=== PATIENT | male | born 1980 | race African-American/Black ===

== ENCOUNTER 2017-05-19 21:24 | Emergency (ER) | payer SELFPAY ==
[~2017-05-19] VITALS: Ht 180.3 cm; Wt 117.9 kg
[2017-05-19 21:44] VITALS: BP 164/106
[2017-05-19 22:14] LABS: BILIRUBIN,URINE NEGATIVE (NEG); GLUCOSE,URINE NEGATIVE (NEG); NITRITE,URINE NEGATIVE (NEG); PROTEIN,URINE 30 mg/dL (NEG-TRACE); UROBILINOGEN,URINE 0.2 mg/dL (0.2 mg/dL)
[2017-05-19 22:16] LABS: BACTERIA,URINE 0 /HPF (0-FEW); RBC,URINE OCC /HPF (0-2); SQUAMOUS EPITHELIAL CELL,UR OCC /LPF; WBC,URINE OCC /HPF (0-4)
[2017-05-19 22:19] LABS: BARBITURATES NEG (NEG); BENZODIAZEPINES NEG (NEG); CANNABINOIDS POS (NEG); COCAINE NEG (NEG); METHADONE NEG (NEG); OPIATES NEG (NEG); PHENCYCLIDINE NEG (NEG)
--- NOTE | 2017-05-19 22:22 | ED.ADGEN ---
Past Medical History Past Medical History: Bipolar, Schizophrenia Past Surgical History: No Surgical History Drug Use: Marijuana, Methamphetamine Adult General Chief Complaint Chief Complaint: MANIC BEHAVIOR HPI HPI Patient is a 36 year old man, with a history of schizophrenia and bipolar disorder, who presents to the emergency department stating "I need my meds, I am chemically imbalanced". Patient is responding to internal stimuli, although he denies hearing voices, and will answer questions appropriately although in a tangential fashion, has pressured speech patient states he was previously taking Haldol and some other medications, and that he was recently released from care home down in [place]. He states that he has not yet established care in [place]. Patient states he's been using methamphetamines, last used it several days ago, denies any other ingestions or exposures. He denies any suicidal or homicidal ideations. He denies any auditory or visual hallucinations , however is noted to be responding to internal stimuli and appears to be speaking to individuals. He states he does not know additional information regarding medications, he denies any chest pain, is complaining of shortness breath, denies any nausea, vomiting, ingestions, injuries, exposures or other complaints at this time. Noted to be tachycardic in the 1 teens, hypertensive a blood pressure of 164/106, oxygen saturation of 99% on room air, history rate is 18 and unlabored. Review of Systems Review of Systems Constitutional: Denies fever or chills. [] Eyes: Denies change in visual acuity. [] HENT: Denies nasal congestion or sore throat. [] Respiratory: Denies cough, complaining of shortness of breath. Cardiovascular: Denies chest pain or edema. [] GI: Denies abdominal pain, nausea, vomiting, bloody stools or diarrhea. [] : Denies dysuria. [] Musculoskeletal: Denies back pain or joint pain. [] Integument: Denies rash. [] Neurologic: Denies headache, focal weakness or sensory changes. [] Endocrine: Denies polyuria or polydipsia. [] Lymphatic: Denies swollen glands. [] Psychiatric: Denies depression or anxiety. Complaining of "feeling chemically imbalanced". Current Medications Current Medications Current Medications Medications (Trade) Dose Ordered Sig/Favian Start Time Stop Time Status Last Admin Dose Admin Sodium Chloride 1,000 ml @ 1,000 mls/hr 1X ONCE 05/19/17 22:30 05/19/17 23:29 DC Ziprasidone (Geodon Im) 20 mg 1X ONCE 05/19/17 22:30 05/19/17 22:31 DC 05/19/17 22:40 20 MG Allergies Allergies Allergies Coded Allergies Type Severity Reaction Last Updated Verified No Known Drug Allergies 05/19/17 No Physical Exam Physical Exam Constitutional: Well developed, well nourished, no acute distress, non-toxic appearance. [] HENT: Normocephalic, atraumatic, bilateral external ears normal, oropharynx moist, no oral exudates, nose normal. [] Eyes: PERRLA, EOMI, conjunctiva normal, no discharge. [] Neck: Normal range of motion, no tenderness, supple, no stridor. [] Cardiovascular:Heart rate regular rhythm, no murmur, S1, S2, rubs or gallops. [] Lungs & Thorax: Bilateral breath sounds clear to auscultation , no wheezing, rhonchi, rales. No chest or crepitus or tenderness.[] Abdomen: Bowel sounds normal, soft, obese, no tenderness, no masses, no pulsatile masses. [] Skin: Warm, dry, no erythema, no rash. [] Back: No tenderness, no CVA tenderness. [] Extremities: No tenderness, no cyanosis, no clubbing, ROM intact, no edema. [] Neurologic: Alert and oriented X 3, normal motor function, normal sensory function, no focal deficits noted. [] Psychologic: Patient with strange affect, responding to internal stimuli, is redirectable with questioning, but pressured speech and tangential responses. Current Patient Data Vital Signs Vital Signs Date Time Temp Pulse Resp B/P (MAP) Pulse Ox O2 Delivery O2 Flow Rate FiO2 05/19/17 21:44 99.4 112 20 164/106 (125) 95 Room Air 99.4 Lab Values Laboratory Tests Test 05/19/17 21:33 05/19/17 22:32 Urine Collection Type Unknown Urine Color Yellow Urine Clarity Clear Urine pH 6.0 Urine Specific [place] 1.015 Urine Protein 30 mg/dL (NEG-TRACE) Urine Glucose (UA) Negative mg/dL (NEG) Urine Ketones (Stick) Negative mg/dL (NEG) Urine Blood Negative (NEG) Urine Nitrite Negative (NEG) Urine Bilirubin Negative (NEG) Urine Urobilinogen Dipstick 0.2 mg/dL (0.2 mg/dL) Urine Leukocyte Esterase Negative (NEG) Urine RBC Occ /HPF (0-2) Urine WBC Occ /HPF (0-4) Urine Squamous Epithelial Cells Occ /LPF Urine Bacteria 0 /HPF (0-FEW) Urine Hyaline Casts Occasional /HPF Urine Mucus Slight /LPF Urine Opiates Screen Neg (NEG) Urine Methadone Screen Neg (NEG) Urine Barbiturates Neg (NEG) Urine Phencyclidine Screen Neg (NEG) Urine Amphetamine/Methamphetamine Neg (NEG) Urine Benzodiazepines Screen Neg (NEG) Urine Cocaine Screen Neg (NEG) Urine Cannabinoids Screen Pos (NEG) Urine Ethyl Alcohol Neg (NEG) White Blood Count 11.2 x10^3/uL (4.0-11.0) H Red Blood Count 4.73 x10^6/uL (4.30-5.70) Hemoglobin 14.1 g/dL (13.0-17.5) Hematocrit 40.6 % (39.0-53.0) Mean Corpuscular Volume 86 fL (79-100) Mean Corpuscular Hemoglobin 30 pg (25-35) Mean Corpuscular Hemoglobin Concent 35 g/dL (31-37) Red Cell Distribution Width 13.5 % (11.5-14.5) Platelet Count 242 x10^3/uL (140-400) Neutrophils (%) (Auto) 61 % (31-73) Lymphocytes (%) (Auto) 30 % (24-48) Monocytes (%) (Auto) 7 % (0-9) Eosinophils (%) (Auto) 1 % (0-3) Basophils (%) (Auto) 1 % (0-3) Neutrophils # (Auto) 6.8 x10^3uL (1.8-7.7) Lymphocytes # (Auto) 3.3 x10^3/uL (1.0-4.8) Monocytes # (Auto) 0.8 x10^3/uL (0.0-1.1) Eosinophils # (Auto) 0.1 x10^3/uL (0.0-0.7) Basophils # (Auto) 0.1 x10^3/uL (0.0-0.2) Sodium Level 142 mmol/L (136-145) Potassium Level 3.8 mmol/L (3.5-5.1) Chloride Level 108 mmol/L (98-107) H Carbon Dioxide Level 25 mmol/L (21-32) Anion Gap 9 (6-14) Blood Urea Nitrogen 10 mg/dL (8-26) Creatinine 1.3 mg/dL (0.7-1.3) Estimated GFR (Cockcroft-Gault) 76.0 Glucose Level 132 mg/dL (70-99) H Calcium Level 8.8 mg/dL (8.5-10.1) Myoglobin 154 ng/mL (16-96) H Troponin I Quantitative < 0.017 ng/mL (0.000-0.055) Laboratory Tests 05/19/17 22:32 Laboratory Tests 05/19/17 22:32 EKG EKG EC: Sinus tachycardia, heart rate 108 bpm, QTC of 446, GA 168, QRS of 92 , left axis deviation, contour abnormalities noted in the anterior lateral leads , abnormal ECG, does not meet STEMI criteria. As interpreted by me. Radiology/Procedures Radiology/Procedures Chest x-ray: PA and lateral: 2 view: Normal cardiopulmonary silhouette, no infiltrates, no effusions, no pneumothorax, no soft tissue or bony abnormalities identified. As interpreted by me. Course & Med Decision Making Course & Med Decision Making Pertinent Labs and Imaging studies reviewed. (See chart for details) Patient cooperative, although he does appear to be responding to internal stimuli at times, he is answering questions appropriately and is oriented in the ED. due to initial mild agitation, and complaints, patient was ordered Geodon in the emergency department which he did accept without issue. Aboratory studies were obtained along with chest x-ray and ECG. Patient noted be tachycardic, and hypertensive in the ED, 180s over 90s, rate is in the 1 teens. He does admit to methamphetamine use and Marijuana use. He states that he is here for medications, and would like to be set up for psychiatric evaluation. Did discuss with patient that there is no psychiatric treatment available at [facility], but once he is medically cleared to be able to have him speak with the psychiatric assessment team to arrange for psychiatric treatment. Patient voiced understanding, however, I was called back to the room with the patient is now declining IV access, and he states that now he has received Geodon in the ED that he is not interested in receiving any additional evaluation. I did discuss again with the patient that he remains tachycardic, and hypertensive, and that he is best suited by a further evaluation stabilization the ED. Patient voiced understanding and stated that he would return to the ED if he began experiencing any concerning symptoms but at this time he states his shortness of breath is resolved he is feeling better, and he would like to follow-up as an outpatient. Patient is not exhibiting any behaviors and KUB a danger to himself or others, although he is responding to internal stimuli as stated, he is appropriate in his responses, and I do not have grounds for detaining the patient at this time, he is appropriate to sign out AGAINST MEDICAL ADVICE. Patient did sign out AGAINST MEDICAL ADVICE, he was , cooperative, answering questions appropriately during his evaluation, he declined additional medications or evaluation as stated, he did exit the emergency department with contact information for the [facility], and instructions to return to the ED at any time for additional evaluation. Dragon Disclaimer Dragon Disclaimer This electronic medical record was generated, in whole or in part, using a voice recognition dictation system. Departure Impression: Primary Impression: Psychiatric disturbance Additional Impressions: Schizophrenia Hypertension Drug abuse Left against medical advice Disposition: 07 AGAINST MEDICAL ADVICE Condition: STABLE Problem Qualifiers JESSICA CESAR DO May 19, 2017 22:22
[2017-05-19] MEDS ORDERED: ZIPRASIDONE IM 20 MG VIAL. IM ONE (22:30)
[2017-05-19] MEDS ORDERED: IV NORMAL SALINE 1000ML BAG 1,000 ML IV ONE (22:30)
[2017-05-19 22:39] LABS: BASO # 0.1 x10^3/uL (0.0-0.2); BASO % 1 % (0-3); EOS % 1 % (0-3); HEMATOCRIT 40.6 % (39.0-53.0); HEMOGLOBIN 14.1 g/dL (13.0-17.5); LYMPH # 3.3 x10^3/uL (1.0-4.8); LYMPH % 30 % (24-48); MEAN CORPUSCULAR HEMOGLOBIN 30 pg (25-35); MEAN CORPUSCULAR HGB CONC 35 g/dL (31-37); MEAN CORPUSCULAR VOLUME 86 fL (79-100); MONO % 7 % (0-9); NEUT % 61 % (31-73); PLATELET COUNT 242 x10^3/uL (140-400); RED BLOOD COUNT 4.73 x10^6/uL (4.30-5.70); RED CELL DISTRIBUTION WIDTH 13.5 % (11.5-14.5); WHITE BLOOD COUNT 11.2 x10^3/uL (4.0-11.0)
[2017-05-19 22:51] LABS: CALCIUM 8.8 mg/dL (8.5-10.1); CREATININE 1.3 mg/dL (0.7-1.3); POTASSIUM 3.8 mmol/L (3.5-5.1)
--- NOTE | 2017-05-20 07:34 | EKG ---
[facility] [address] [place] [address] Test Date: 2017-05-19 Test Time: 22:33:43 Pat Name: ANGIE SUAREZ Department: Room: Gender: Filler Shaker: : 1980 Requested By: JESSICA CESAR Order Number: [id number] Reading MD: Syeda León Measurements Intervals [place] Rate: 108 P: 47 GA: 168 QRS: -3 QRSD: 92 T: 34 QT: 330 QTc: 446 Interpretive Statements SINUS TACHYCARDIA LEFTWARD AXIS OTHERWISE NORMAL EKG Electronically Signed On 05-21-2017 19:22:17 CDT by Syeda León
--- NOTE | 2017-05-20 08:28 | RAD ---
2 view CXR: Clinical indications: Shortness of breath today. Comparison: None available. Findings: No acute lung infiltrate or pleural effusion or pulmonary edema or lung mass or pneumothorax is seen. The heart size, pulmonary vasculature, mediastinum and both giovanni are unremarkable. The osseous structures appear intact. Impression: No acute radiographic abnormality is seen.
== END 2017-05-19 23:18 | disposition left against medical advice (07) ==
LOC: ER 21:24
DX: F99 Mental disorder, not otherwise specified (principal); F20.9 Schizophrenia, unspecified; I10 Essential (primary) hypertension; F15.10 Other stimulant abuse, uncomplicated; F31.9 Bipolar disorder, unspecified; E66.9 Obesity, unspecified; Z68.36 Body mass index [BMI] 36.0-36.9, adult
CPT/HCPCS: 36415; 71020; 80048; 80307; 81001; 83874; 84484; 85025; 93005; 96372; 99285; J3486; G0479